=== PATIENT | male | born 1955 | race Caucasian/White ===

== ENCOUNTER 2025-04-15 14:43 | Emergency (ER) | payer OTHER, SELFPAY ==
[2025-04-15 14:48] VITALS: BP 172/93
[2025-04-15 15:20] LABS: Hematocrit 41.3 % (39.0-52.0); Hemoglobin 13.5 g/dL (13.0-18.0); Mean Corp Hgb Conc. 32.7 g/dL (33.0-37.0); Mean Corpuscular Volume 88.8 fL (80.0-94.0); Nucleated Red Blood Cells % 0 % (-); Platelet Count 253 10^3/uL (130-400); Red Cell Dist. Width 13.2 % (11.5-14.5)
[2025-04-15 15:24] LABS: Urine Character Clear (Clear)
[2025-04-15 15:41] LABS: ALT (SGPT) 39 U/L (0-50); AST (SGOT) 42 U/L (17-59); Albumin 4.1 g/dl (3.5-5.0); Alkaline Phosphatase 80 U/L (38-126); Blood Urea Nitrogen 17 mg/dl (9-20); Calcium 9.7 mg/dl (8.4-10.2); Carbon Dioxide 29 mmol/L (22-30); Chloride 106 mmol/L (98-107); Glucose 150 mg/dl (70-99); Lipase 161 U/L (23-300); Potassium 4.8 mmol/L (3.5-5.1); Sodium 142 mmol/L (135-145); Total Protein 7.4 g/dl (6.3-8.2); eGFR > 60.00
--- NOTE | 2025-04-15 17:13 | ED.GENMED ---
History of Present Illness
General
Chief Complaint: Back Pain
Source: patient
Exam Limitations: none
Time Seen by Provider: 04/15/25 17:01
Nursing documentation reviewed up to this point in time: agreed with
History of Present Illness
History of Present Illness:
Patient is a 70-year-old male past medical history of hypertension hyperlipidemia CAD with stent no longer on blood thinners presents to the ER for evaluation. Patient has had low back pain for the past several weeks. 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
doing landscaping. Now pain seems to be more localized to the right lower back and he feels pain in his bilateral groin. He also feels lower abdominal discomfort he has been nauseous and having dry heaves. He reports intermittent constipation and
gas.
Phy Exam
General Physical Exam
General Presentation: no apparent distress
General age: appears stated age
General Skin: warm and dry
General Habitus: normal
General Mental: alert
General Hydration: appears well hydrated
Cardiovascular Exam
Cardiovascular Exam: regular rate/rhythm, no murmur and normal peripheral pulses
Pulmonary Exam
Pulmonary Exam: lungs clear and no respiratory distress
Gastrointestinal Exam
Gastrointestinal Exam: non tender and soft
Neurological Exam
Neurological Exam: alert and oriented x3
Musculoskeletal Exam
Musculoskeletal Exam: full ROM
Skin Exam
Skin Exam: normal color and warm/dry
Psychiatric Exam
Psychiatric Exam: normal mood/affect
Course
Orders/Labs/Results
Orders:
Orders
04/15/25 15:01
Urinalysis Reflex To Culture Urgent
Date Specimen was Collected: 04/15/25
Time Specimen was Collected: 14:53
Urine Microscopic Reflex Cult Urgent
Urine Culture Urgent
IVONNE Source: U
Specimen Description:
Date Specimen was Collected: 04/15/25
Time Specimen was Collected: 14:53
04/15/25 15:05
Complete Blood Count/With Diff Urgent
Comprehensive Metabolic Panel Urgent
Lipase Urgent
04/15/25 17:12
CT Abd/pelvis W Iv Cont Urgent
Comment:
Reason For Exam: lower abd /back pain dry heaves
04/15/25 17:15
0.9% Sodium Chloride 1000 ml [Nss] 1,000 ml IV BOLUS
04/15/25 20:13
Ketorolac [Toradol] 15 mg IV NOW STA
Abnormal Lab Results
04/15/25 04/15/25
15:01 15:05
RBC 4.65 L 10^6/uL
(4.70-6.10)
MCHC 32.7 L g/dL
(33.0-37.0)
Abs Immat Gran (auto) 0.1 H 10^3/uL
(0-0.05)
Absolute Neuts (auto) 9.0 H 10^3/uL
(1.4-6.5)
Absolute Lymphs (auto) 0.6 L 10^3/uL
(1.2-3.4)
Absolute Monos (auto) 0.9 H 10^3/uL
(0.1-0.6)
Neutrophils % 83.6 H %
(42.2-75.2)
Lymphocytes % 5.1 L %
(20.5-51.1)
Glucose 150 H mg/dl
(70-99)
Ur Occult Blood Reflex 2+ A
(Negative)
Leukocyte Esterase Rfl 2+ A
(Negative)
Urine RBC 3-6 A /HPF
(0-2)
Urine Bacteria (Reflex) Few A
(Negative)
Urine Albumin (Reflex) 2+ A
(Neg - Trace)
04/15/25 15:05
04/15/25 15:05
Vital Signs
Initial and Last Documented VS:
Initial Vital Signs
Temp Pulse Resp BP Pulse Ox
97.8 F 98 18 172/93 97
04/15/25 14:48 04/15/25 14:48 04/15/25 14:48 04/15/25 14:48 04/15/25 14:48
Last Documented Vital Signs
Temp Pulse Resp BP Pulse Ox
97.8 F 98 18 172/93 97
04/15/25 14:48 04/15/25 14:48 04/15/25 14:48 04/15/25 14:48 04/15/25 17:15
Sales Research Analyst consulted with Physician
Sales Research Analyst consulted with physician?: Yes
Name of Physician Consulted: DR Melendrez
MDM/Problems Addressed
Differential Diagnosis Includes:
Not limited to muscular back pain, diverticulitis, constipation, obstruction
MDM/Problems Addressed:
As documented patient is a 70-year-old male who has had low back pain however back pain now radiates to his lower abdomen and groin. He has nauseous with dry heaves. He presents afebrile and denies any recent fever or chills. Abdomen soft and
nontender patient points are to his groin and lower abdomen causing the discomfort along with low back pain. His white count is 10.7 his hemoglobin is normal Sugar is mildly elevated however normal renal function CAT scan unfortunately shows large
amount of lymphadenopathy in the abdomen and pelvis greatest in the retroperitoneum with a large oren conglomeration lymphadenopathy in the posterior lower chest most suspicious for lymphoma less likely metastatic lymphadenopathy.
I reviewed imaging results with patient and . Patient's son is an oncologist out of [place]. I did speak with patient's son Pepe over the phone he would like to have patient discharged and he will work this up as an outpatient. He does request
that patient be given an nonsteroidal other than ibuprofen we will give a short course of Toradol and Zofran for nausea. Patient's kidney function is normal. He is in no acute distress now. Will give a dose of IV Toradol now. Pt is stable for
d/c. Case dc with DR Melendrez
Pt has cardiac history in past not on ASA /plavix no blood thinners.
*Radiology
Radiology exam reviewed: radiology read reviewed
*Pulse Oximetry
SaO2: 97
Oxygen Mode of Delivery: Room air
Patient hypoxic: no
*Critical Care Note
Total Time (30-74mins, 75-104mins- exclusive of procedures): Not Applicable
ED Attending Note
-
Portions of this chart may have been created with voice recognition software.� Occasional wrong word or��sound alike� substitutions may have occurred due to the inherent limitations of voice recognition software.
Discharge Plan
Departure
Patient Disposition: Home (Routine Discharge)
Date of Disposition: 04/15/25
Time of Disposition: 20:17
Patient with high blood pressure during this ER visit?: Yes
Covid-19: Not Applicable
Discharge Problem:
Abdominal pain
Instructions: Abdominal pain in adults (DC), BLOOD PRESSURE
Prescriptions:
New
ketorolac 10 mg tablet
10 mg PO Q8H PRN (Reason: Pain) 5 Days Qty: 15 0RF
ondansetron 4 mg tablet,disintegrating
4 mg PO Q8H PRN (Reason: nausea and vomiting) Qty: 10 0RF
No Action
metoprolol succinate 50 MG tablet extended release 24 hr
50 mg PO BID
simvastatin [Zocor] 80 MG tablet
80 mg PO HS
lisinopril 5 MG tablet
5 mg PO DAILY
sertraline 50 MG tablet
50 mg PO DAILY
Referrals:
Lazaro Flannery DO [Family Provider, Family Practice]
Activity Restrictions/Additional Instructions:
As discussed please follow-up for findings concerning findings on your CAT scan. You may take Zofran as needed for nausea. In addition a medication called Toradol (take with food ) which is an anti-inflammatory will be sent to your pharmacy as
well. You may take this as needed for discomfort. Return if any worsening of symptoms
Interventions
Interventions:
*Risk Screen - Suicide Last Done: 04/15/25 14:48
Discharge Date and Time
Print Language: UKRAINIAN
[2025-04-15] MEDS: NSS 1000 IV (18:29)
[2025-04-15] MEDS: TORADOL 15 MG IV (20:23)
[2025-04-15 20:38] VITALS: BP 183/98
== END 2025-04-15 20:46 | disposition home or self-care (01) ==
LOC: EMR 14:43
PROVIDERS: Emergency Medicine; EMERGENCY PHYSICIAN Emergency Medicine; FAMILY PHYSICIAN Family Medicine
DX: R10.9 Unspecified abdominal pain (principal); R59.1 Generalized enlarged lymph nodes; I25.10 Atherosclerotic heart disease of native coronary artery without angina pectoris; I10 Essential (primary) hypertension; E78.5 Hyperlipidemia, unspecified; Z95.5 Presence of coronary angioplasty implant and graft
CPT/HCPCS: 99284; 96374; 96361; 74177; 80053; 81003; 81015; 83690; 85025; 87086; Q9967